=== PATIENT | male | born 1950 | race African-American/Black ===

== ENCOUNTER 2016-11-23 14:44 | Emergency (ER) | payer OTHER, MEDICAID ==
[~2016-11-23] VITALS: Ht 177.8 cm; Wt 84.0 kg
[~2016-11-23 14:44] MED LIST: BEN50 PO; CYCL-319 PO; HYDR-3498 PO; IBUP800T25 PO
[2016-11-23 14:49] VITALS: Ht 177.8 cm; Wt 84.0 kg
[2016-11-23] MEDS ORDERED: ONDANSETRON (ODT) 4 MG TAB ODT STA (15:53)
[2016-11-23] MEDS ORDERED: HYDROCODONE/APAP (5/325) TAB PO ONE (16:00)
[2016-11-23] MEDS ORDERED: TRAM50TA2 PO (16:10)
[2016-11-23] MEDS ORDERED: NAPR-260 PO (16:10)
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
== END 2016-11-23 16:15 | disposition home or self-care (01) ==
LOC: FTE 14:44
DX: S49.91XA Unspecified injury of right shoulder and upper arm, initial encounter (principal); I10 Essential (primary) hypertension; F17.210 Nicotine dependence, cigarettes, uncomplicated; V89.2XXA Person injured in unspecified motor-vehicle accident, traffic, initial encounter
CPT/HCPCS: 99283

== ENCOUNTER 2018-12-16 06:53 | Emergency (ER) | payer OTHER, MEDICAID ==
[~2018-12-16] VITALS: Wt 80.0 kg
[~2018-12-16 06:53] MED LIST changes: -CYCL-319 PO; +CYCL10TA7 PO; -IBUP800T25 PO; +IBUP800T48 PO; +NAPR-985 PO; +TRAM50TA2 PO
--- NOTE | 2018-12-16 07:07 | ERD ---
ER Documentation Chief Complaint Chief Complaint chest pain since 6 days. sent here by pmd. no N/V.no sob noted. HPI 68-year-old male history of hypertension presents the ED, referred from clinic 2 days ago for evaluation of chest pain. Patient reports a 6-day history of unprovoked, intermittent, mild, stabbing, nonradiating left parasternal chest pain lasting seconds several times per day but none yesterday. Symptoms are not accompanied by shortness of breath, nausea, vomiting or diaphoresis. No relieving or exacerbating factors. Denies leg pain or swelling. No cough or hemoptysis. No orthopnea or exertional dyspnea. Chronic low back pain but denies abdominal pain, diarrhea or constipation. Patient was seen in the clinic 2 days ago, EKG revealed T wave inversions in leads V1 and V2 and he was referred to the ED for further evaluation but does not present until today. ROS All systems reviewed and are negative except as per history of present illness. Medications Home Meds Reported Medications Escitalopram Oxalate* (Lexapro*) 10 Mg Tablet, 10 MG PO DAILY, #30 TAB 12/16/18 Baclofen* (Baclofen*) 10 Mg Tablet, 10 MG PO QHS, TAB 12/16/18 Gabapentin* (Gabapentin*) 600 Mg Tablet, 600 MG PO TID, #90 TAB 12/16/18 Oxycodone Hcl* (IR) (Oxycodone Hcl*) 30 Mg Tablet, 30 MG PO TID PRN for PAIN, TA B 12/16/18 Hydrochlorothiazide* (Hydrochlorothiazide*) 25 Mg Tab, 25 MG PO DAILY, #30 TAB 12/16/18 Discontinued Scripts Naproxen* (Naprosyn*) 500 Mg Tablet, 500 MG PO BID PRN for PAIN AND/OR INFLAMMATION, #20 TAB Prov:RONNIE ARCOS PA-C 11/23/16 Tramadol HCl (Tramadol HCl) 50 Mg Tablet, 50 MG PO Q4 PRN for PAIN, #20 TAB Prov:RONNIE ARCOS PA-C 11/23/16 Diphenhydramine Hcl* (Benadryl*) 50 Mg Cap, 50 MG PO QHS PRN for INSOMNIA, #15 CAP Prov:YANETH ALEGRIA OIL LEASE OPERATOR 11/22/15 Ibuprofen* (Motrin*) 800 Mg Tab, 800 MG PO Q6, #60 TAB Prov:SALONI YEE Miky CHAMPAGNE 04/01/15 Cyclobenzaprine Hcl* (Cyclobenzaprine Hcl*) 10 Mg Tablet, 10 MG PO TID, #15 TAB Prov:ESTHER MCKINLEY [place] 03/29/15 Hydrocodone Bit-Acetaminophen* ([place]*) 5-325 Mg Tab, 1 TAB PO Q6 PRN for PAIN, #20 TAB Prov:ESTHER MCKINLEY [place] 03/29/15 Allergies Allergies: Coded Allergies: No Known Allergy (Unverified , 12/16/18) PMhx/Soc Reviewed in chart. As per HPI. History of Surgery: Yes (Hernia repair) Anesthesia Reaction: No Hx Neurological Disorder: No Hx Respiratory Disorders: No Hx Cardiac Disorders: No Hx Psychiatric Problems: No Hx Miscellaneous Medical Probl: Yes ( HTN, hep C, chronic back pain) Hx Alcohol Use: Yes Hx Substance Use: No Hx Tobacco Use: Yes FmHx No coronary artery disease or cancer. Physical Exam Vitals Vital Signs Date Temp Pulse Resp B/P (MAP) Pulse Ox O2 O2 Flow FiO2 Time Delivery Rate 12/16/18 98.1 58 18 148/75 100 Room Air 12:22 (99) 12/16/18 39 16 151/86 100 Room Air 11:01 (107) 12/16/18 40 16 128/85 100 Room Air 08:30 (99) 12/16/18 98.2 53 16 130/84 98 06:56 (99) Physical Exam Const: No acute distress Head: Atraumatic Eyes: Normal Conjunctiva ENT: Normal External Ears, Nose and Mouth. No lymphadenopathy or masses. Neck: Full range of motion. No JVD. Resp: Clear to auscultation bilaterally Cardio: Bradycardia. Regular rate and rhythm, no murmurs Chest Wall: No tenderness Abd: Soft, non tender, non distended. No masses. No rebound or guarding. Normal bowel sounds Skin: No petechiae or rashes Back: No midline or flank tenderness Ext: No cyanosis, or edema. Pulses 4+ in all extremities Neur: Awake and alert. No focal deficit. Psych: Normal Mood and Affect Result Diagram: 12/16/18 0738 12/16/18 0738 Results 24 hrs Laboratory Tests Test 12/16/18 07:38 12/16/18 10:30 12/17/18 10:21 White Blood Count 4.8 10^3/ul Red Blood Count 5.22 10^6/ul Hemoglobin 14.9 g/dl Hematocrit 45.2 % Mean Corpuscular Volume 86.6 fl Mean Corpuscular 28.5 pg Hemoglobin Mean Corpuscular 33.0 g/dl Hemoglobin Concent Red Cell Distribution 13.3 % Width Platelet Count 203 10^3/UL Mean Platelet Volume 11.4 fl Immature Granulocytes % 0.600 % Neutrophils % 55.1 % Lymphocytes % 34.2 % Monocytes % 7.6 % Eosinophils % 2.1 % Basophils % 0.4 % Nucleated Red Blood Cells 0.0 /100WBC % Immature Granulocytes # 0.030 10^3/ul Neutrophils # 2.6 10^3/ul Lymphocytes # 1.6 10^3/ul Monocytes # 0.4 10^3/ul Eosinophils # 0.1 10^3/ul Basophils # 0.0 10^3/ul Nucleated Red Blood Cells 0.0 10^3/ul # Sodium Level 142 mmol/L Potassium Level 4.6 mmol/L Chloride Level 105 mmol/L Carbon Dioxide Level 23 mmol/L Anion Gap 14 Blood Urea Nitrogen 20 mg/dl Creatinine 1.02 mg/dl Est Glomerular Filtrat > 60 mL/min Rate mL/min Glucose Level 114 mg/dl Calcium Level 9.8 mg/dl Total Bilirubin 0.2 mg/dl Direct Bilirubin 0.00 mg/dl Indirect Bilirubin 0.2 mg/dl Aspartate Amino 35 IU/L Transf (AST/SGOT) Alanine 18 IU/L Aminotransferase (ALT/SGP T) Alkaline Phosphatase 44 IU/L Troponin I 0.029 ng/ml < 0.012 ng/ml Total Protein 7.6 g/dl Albumin 4.4 g/dl Globulin 3.20 g/dl Albumin/Globulin Ratio 1.37 Lab Scanned Report REFERENCE LAB [id number] Current Medications Medications Dose Sig/Jesus Start Time Status Last (Trade) Ordered Route PRN Stop Time Admin Dose Reason Admin Aspirin 325 mg ONCE STAT 12/16/18 DC 12/16/18 (Aspirin) PO 07:10 08:30 12/16/18 07:12 Procedures/MDM DOCUMENTS REVIEWED: ED nurse, prior records EKG: Time: 658. Sinus bradycardia. Ventricular rate 47. Normal IN and QRS. Nonspecific T wave changes. No acute ST elevation or depression. No ectopy. My Interpretation IMAGING: Chest AP portable. Cardiac silhouette is normal. The costophrenic angles are clear. No effusions or infiltrates. No abnormalities of the bony thorax. My interpretation. Observation Note: Time: 3 hours Family Hx: No Hypertension, coronary artery disease or sudden cardiac Evaluation: Multiple exams showed improving symptoms and no evidence of acute coronary syndrome MEDICAL DECISION MAKIN-year-old male history of hypertension presents the ED, referred from clinic 2 days ago for evaluation of chest pain. CBC is negative for anemia, leukocytosis or thrombocytopenia. Chemistry reveals no evidence of renal insufficiency or electrolyte abnormalities. Serial troponins are negative. EKG significant for bradycardia but no ischemic EKG changes or heart block. The patient presents with chest pain and I considered pulmonary embolism, aortic dissection, pneumothorax among other diagnoses. Evaluation for acute coronary syndrome was performed. The HEART score was utilized for risk stratification and found to be = 3. Repeat EKG and troponin @ 3 hours were unchanged. Based on this evaluation the patients risk of major adverse cardiac events is <1%. Asymptomatic sinus bradycardia with long history of same. Shared decision making occurred with patient and the decision has been made to discharge the patient for outpatient evaluation and functional study within 72 hours. Stable for discharge with precautionary instructions and outpatient follow-up as counseled. Counseled patient[ and family] regarding diagnostic workup, diagnosis and need for followup. Understands to return to ED if symptoms recur, worsen or any other concerns. Departure Diagnosis: Primary Impression: Chest pain with low risk for cardiac etiology Additional Impression: Bradycardia Condition: Stable PHIL RAM MD Dec 16, 2018 07:07
[2018-12-16] MEDS ORDERED: ASPIRIN 325 MG TAB PO STA (07:10)
[2018-12-16] MEDS ORDERED: HYDR25TA6 PO (10:26)
[2018-12-16] MEDS ORDERED: GABA-526 PO (10:27)
[2018-12-16] MEDS ORDERED: OXYC30TA PO (10:27)
[2018-12-16] MEDS ORDERED: BACL10TA PO (10:27)
[2018-12-16] MEDS ORDERED: ESCI10TA PO (10:28)
[2018-12-16 12:22] VITALS: BP 148/75; PULSE 58; RESP 18
== END 2018-12-16 12:23 | disposition home or self-care (01) ==
LOC: E/R 06:53
DX: R07.9 Chest pain, unspecified (principal); R00.1 Bradycardia, unspecified; I10 Essential (primary) hypertension; Z87.891 Personal history of nicotine dependence
CPT/HCPCS: 36415; 71045; 80053; 84484; 85025; 93005